=== PATIENT | female | born 1965 | race Caucasian/White ===

== ENCOUNTER 2016-11-06 06:36 | Day surgery (SDC) | payer OTHER ==
[2016-11-06] MEDS ORDERED: IV START KIT ONE (06:39)
[2016-11-06] MEDS ORDERED: LACTATED RINGERS 1,000 ML ONE (06:39)
[2016-11-06] MEDS ORDERED: PROPOFOL 40 ML IV ONE (07:44)
[2016-11-06] MEDS ORDERED: LACTATED RINGERS 1,000 ML IV SCH (07:45)
== END 2016-11-06 08:54 | disposition home or self-care (01) ==
LOC: SDC 06:36
PROVIDERS: ATTEND Family Medicine
PROC: 0DJD8ZZ Inspection of Lower Intestinal Tract, Via Natural or Artificial Opening Endoscopic (ICD-10-PCS; principal; 2016-11-06)
DX: Z12.11 Encounter for screening for malignant neoplasm of colon (principal); I10 Essential (primary) hypertension; E78.5 Hyperlipidemia, unspecified
CPT/HCPCS: 45378; J7120